=== PATIENT | female | born 1945 | race American Indian/Alaskan Native ===

== ENCOUNTER 2019-06-22 09:51 | Outpatient (CLI) | payer MEDICARE ==
--- NOTE | 2019-06-22 11:48 | Cat Scan Report ---
CT ABDOMEN AND PELVIS WITHOUT CONTRAST HISTORY: D41.02 NEOPLASM OF UNCERTAIN BEHAVIOR OF LEFT KIDNEY COMPARISON: None. TECHNIQUE: Axial CT images were obtained through the abdomen and pelvis without IV contrast. Sagittal and coronal reformatted images. All CT scans at this location are performed using CT dose reduction for ALARA by means of automated exposure control. FINDINGS: CT ABDOMEN: Lung Bases: Clear. Liver: No significant abnormality. Biliary: No significant abnormality. Spleen: No significant abnormality. Unenlarged. Pancreas: No significant abnormality. Adrenals: No significant abnormality. Kidneys: Both kidneys are normal size, contour and position. There is suggestion of a subtle cyst jose suring 2 cm in the mid right kidney. No left renal lesion is detected on noncontrast CT. The ureters are normal course and caliber. Lymphatics: No lymphadenopathy. Vasculature: No significant abnormality. Bowel/Peritoneum: No significant abnormality. No free air. No free fluid. Normal appendix. CT PELVIS: : The uterus is enlarged and appears to contain multiple small to medium fibroids some of which con tain focal calcifications. The endometrium is grossly normal. No adnexal abnormality is detected. The distal ureters and bladder are unremarkable. Osseous Structures: Mild scoliosis and degenerative changes in the thoracolumbar spine. No fracture o r suspicious bony lesion. Additional Findings: None IMPRESSION: No left renal lesion is identified on noncontrast CT. There is suggestion of a subtle 2 cm cyst in th e right kidney near mid pole. Moderate uterine fibroid disease. Thoracolumbar scoliosis with degenerative changes. Signer Name: Navarro Chowdhury Jr, MD Signed: 06/22/2019 11:44 AM Workstation Name: [id number]
== END 2019-06-22 09:52 | disposition home or self-care (01) ==
LOC: CT 09:51
PROVIDERS: ATTEND Urology
DX: D41.02 Neoplasm of uncertain behavior of left kidney (principal); D25.9 Leiomyoma of uterus, unspecified; N85.2 Hypertrophy of uterus; M41.55 Other secondary scoliosis, thoracolumbar region
CPT/HCPCS: 74176

== ENCOUNTER 2020-07-29 10:22 | Outpatient (CLI) | payer MEDICARE ==
[2020-07-29 11:35] LABS: Blood Urea Nitrogen 20 mg/dL (7-17)
--- NOTE | 2020-07-29 14:16 | Cat Scan Report ---
CT ABDOMEN AND PELVIS WITH CONTRAST INDICATION / CLINICAL INFORMATION: FATTY LIVER. TECHNIQUE: Axial CT images were obtained through the abdomen and pelvis after 100 cc IV contrast. Sagittal and c oronal reformatted images. All CT scans at this location are performed using CT dose reduction for AL HEATH by means of automated exposure control. COMPARISON: 06/22/2019 FINDINGS: LOWER CHEST: Trace right pleural effusion layers posteriorly. The visualized lung bases are well aera gloria otherwise. Heart size is at the upper limits of normal. LIVER: No significant abnormality. No significant fatty infiltration is appreciated. No focal lesion. GALLBLADDER: No significant abnormality. BILE DUCTS: No significant abnormality. PANCREAS: No significant abnormality. SPLEEN: No significant abnormality. ADRENALS: No significant abnormality. RIGHT KIDNEY and URETER: 2 simple cysts are identified in the mid right kidney measuring 1.8 cm and 2 .0 cm. Otherwise the right kidney and collecting system are unremarkable. LEFT KIDNEY and URETER: No significant abnormality. STOMACH and SMALL BOWEL: No significant abnormality. COLON: No significant abnormality. APPENDIX: Not confidently identified, correlate with surgical history. PERITONEUM: No free fluid. No free air. No fluid collection. LYMPH NODES: No significant adenopathy. AORTA and ARTERIES: No significant abnormality. IVC and VEINS: No significant abnormality. URINARY BLADDER: No significant abnormality. REPRODUCTIVE ORGANS: The uterus is enlarged, lobular and heterogeneous. Multiple fibroids are present measuring up to 4.4 cm. The endometrium and adnexa are unremarkable. ADDITIONAL FINDINGS: 11.4 x 8.0 cm well-circumscribed fat density mass lesion is partially imaged in the mid left back and is most consistent with a lipoma. SKELETAL SYSTEM: There is mild dextro curvature of the lumbar spine with moderate to severe multileve l degenerative change. No acute fracture or suspicious bony lesion is detected. IMPRESSION: Unremarkable CT appearance of the liver. Simple right renal cysts as described. Trace right pleural effusion. Borderline heart size. Moderate to severe uterine fibroid disease. 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 Scoliosis with moderate thoracolumbar spondylosis. Signer Name: Navarro Chowdhury Jr, MD Signed: 07/29/2020 2:12 PM Workstation Name: [id number]
== END 2020-07-29 10:23 | disposition home or self-care (01) ==
LOC: CT 10:22
PROVIDERS: ATTEND Internal Medicine
DX: K76.0 Fatty (change of) liver, not elsewhere classified (principal); N28.1 Cyst of kidney, acquired; D25.9 Leiomyoma of uterus, unspecified; N85.2 Hypertrophy of uterus; J90 Pleural effusion, not elsewhere classified; D17.79 Benign lipomatous neoplasm of other sites; M47.815 Spondylosis without myelopathy or radiculopathy, thoracolumbar region
CPT/HCPCS: 36415; 74177; 82565; 84520; Q9967; 74170

== ENCOUNTER 2020-10-10 09:25 | Outpatient (CLI) | payer MEDICARE ==
--- NOTE | 2020-10-10 11:00 | Mammography Report ---
DEXA BONE DENSITY SCAN INDICATION / CLINICAL INFORMATION: OSTEOPOROSIS. 75 years Female COMPARISON: None available. LUMBAR SPINE, L1-L4: - Bone mineral density (BMD) = 0.935 g/cm2. - T-score = -1.0 - Z-score = 0.6 Change (%) since most recent prior (if available): None available. LEFT HIP, TOTAL : - Bone mineral density (BMD) = 0.713 g/cm2. - T-score = -1.9 - Z-score = -0.8 Change (%) since most recent prior (if available): None available. IMPRESSION: 1. WHO Classification: Osteopenia. Fracture Risk: Increased. 2. 10-Year Fracture Risk (FRAX) = Major Osteoporotic 4.5% / Hip: 0.8% FRAX generally not reported for patients with normal or osteoporotic BMD, in ewc-cnlwezp-nwjrcpu km ents younger than age 50, or in patients undergoing pharmacotherapy BMD Reporting Guidelines (ISCD, 2015) BMD Reporting in Postmenopausal Women and in Men Age 50 and Older - T-scores are preferred. - The WHO densitometric classification is applicable. BMD Reporting in Females Prior to Menopause and in Males Younger Than Age 50 - Z-scores, not T-scores, are preferred. This is particularly important in children. - A Z-score of -2.0 or lower is defined as below the expected range for age, and a Z-score above -2.0 is within the expected range for age. - Osteoporosis cannot be diagnosed in men under age 50 on the basis of BMD alone. - The WHO diagnostic criteria may be applied to women in the menopausal transition. http://www.iscd.org/official-positions/7481-kdoo-aynmughj-positions-adult/ Signer Name: Silvano Engle MD Signed: 10/10/2020 10:55 AM Workstation Name: [id number]
== END 2020-10-10 09:26 | disposition home or self-care (01) ==
LOC: MAMMO 09:25
PROVIDERS: ATTEND Internal Medicine
DX: M85.89 Other specified disorders of bone density and structure, multiple sites (principal); Z13.820 Encounter for screening for osteoporosis; N95.1 Menopausal and female climacteric states
CPT/HCPCS: 77080

== ENCOUNTER 2020-12-25 12:36 | Outpatient (CLI) | payer MEDICARE ==
--- NOTE | 2020-12-25 14:08 | Cat Scan Report ---
CT ABDOMEN AND PELVIS WITHOUT CONTRAST INDICATION / CLINICAL INFORMATION: RIGHT UPPER QUADRANT PAIN. TECHNIQUE: Axial CT images were obtained through the abdomen and pelvis without IV contrast. All CT scans at this location are performed using CT dose reduction for ALARA by means of automated exposure control. COMPARISON: 07/29/2020 FINDINGS: LOWER CHEST: No significant abnormality. AORTA / ARTERIES: No significant abnormality. IVC / VEINS: No significant abnormality. LYMPH NODES: No significant adenopathy. COLON: Diverticulosis without acute inflammation. APPENDIX: Not visualized. STOMACH / SMALL BOWEL: Small hiatal hernia. PERITONEUM: No free fluid. No free air. No fluid collection. LIVER: No significant abnormality. GALLBLADDER: No significant abnormality. BILE DUCTS: No significant abnormality. PANCREAS: No significant abnormality. SPLEEN: No significant abnormality. ADRENALS: No significant abnormality. RIGHT KIDNEY / URETER: Renal cyst. No hydronephrosis. LEFT KIDNEY / URETER: No significant abnormality. URINARY BLADDER: No significant abnormality. REPRODUCTIVE ORGANS: Multiple degenerating fibroids. SKELETAL SYSTEM: Scattered degeneration ADDITIONAL FINDINGS: None. IMPRESSION: 1. No CT findings to explain symptomatology. 2. Other findings as above. Signer Name: Shaka Rain DO Signed: 12/25/2020 2:03 PM Workstation Name: [id number]
== END 2020-12-25 12:37 | disposition home or self-care (01) ==
LOC: CT 12:36
PROVIDERS: ATTEND Urology
DX: N28.1 Cyst of kidney, acquired (principal); K57.30 Diverticulosis of large intestine without perforation or abscess without bleeding; K44.9 Diaphragmatic hernia without obstruction or gangrene; D25.9 Leiomyoma of uterus, unspecified; M47.819 Spondylosis without myelopathy or radiculopathy, site unspecified
CPT/HCPCS: 74176

== ENCOUNTER 2021-06-26 09:52 | Emergency (ER) | payer MEDICARE ==
--- NOTE | 2021-06-26 11:28 | Emergency Department Report ---
ED General Adult HPI - General Chief complaint: Recheck/Abnormal Lab/Rx Stated complaint: HYPERKALEMIA Time Seen by Provider: 06/26/21 11:16 Source: family, EMS ( EMS documentation not available at time of chart dictation ), RN notes reviewed Mode of arrival: Stretcher Limitations: Physical Limitation - History of Present Illness Initial comments: The patient is a 76-year-old female who is referred to the emergency room for possible hyperkalemia. History obtained from nursing team, who in turn obtained history from family. Patient has been at her baseline, and recently completed a course of Bactrim antibiotics for possible UTI. Reportedly outpatient laboratory studies were drawn, for unclear reasons, and the patient was referred to the emergency room for high potassium. The patient herself is awake and nonverbal. She therefore does not describe qualitative nature of symptoms, exacerbating factors relieving factors or aggravating factors. As per verbal report from nursing team, family have not endorsed any additional concerns. Severity scale (0 -10): 3 - Related Data Home Medications Medication Instructions Recorded Confirmed Last Taken Amiodarone [Cordarone 200 MG TAB] 200 mg PO 06/26/21 06/25/21 08:00 Apixaban [Eliquis] 5 mg PO 06/26/21 06/25/21 08:00 Atorvastatin [Lipitor Tab] 80 mg PO QHS 06/26/21 06/26/21 06/25/21 21:00 Famotidine [Acid-Pep] 20 mg PO 06/26/21 06/25/21 08:00 Hydralazine HCl 50 mg PO 06/26/21 06/25/21 20:00 Magnesium Oxide 400 mg PO 06/26/21 06/25/21 08:00 amLODIPine [Norvasc] 10 mg PO DAILY 06/26/21 06/26/21 06/25/21 08:00 carvediloL [Coreg] 25 mg PO BID 06/26/21 06/26/21 06/25/21 20:00 hydroCHLOROthiazide 12.5 mg PO 06/26/21 06/25/21 08:00 [Hydrochlorothiazide] lisinopriL [Lisinopril] 10 mg PO 06/26/21 06/25/21 08:00 Allergies Allergy/AdvReac Type Severity Reaction Status Date / Time fish oil Allergy Mild Rash Verified 06/26/21 10:25 ED Review of Systems ROS: Stated complaint: HYPERKALEMIA Other details as noted in HPI ED Past Medical Hx - Past Medical History Previous Medical History?: Yes Hx CVA: Yes Hx Arthritis: Yes - Surgical History Past Surgical History?: Yes Additional Surgical History: hysterectomy - Social History Smoking Status: Never Smoker Substance Use Type: None - Medications Home Medications: Home Medications Medication Instructions Recorded Confirmed Last Taken Type Amiodarone [Cordarone 200 MG TAB] 200 mg PO 06/26/21 06/25/21 08:00 History Apixaban [Eliquis] 5 mg PO 06/26/21 06/25/21 08:00 History Atorvastatin [Lipitor Tab] 80 mg PO QHS 06/26/21 06/26/21 06/25/21 21:00 History Famotidine [Acid-Pep] 20 mg PO 06/26/21 06/25/21 08:00 History Hydralazine HCl 50 mg PO 06/26/21 06/25/21 20:00 History Magnesium Oxide 400 mg PO 06/26/21 06/25/21 08:00 History amLODIPine [Norvasc] 10 mg PO DAILY 06/26/21 06/26/21 06/25/21 08:00 History carvediloL [Coreg] 25 mg PO BID 06/26/21 06/26/21 06/25/21 20:00 History hydroCHLOROthiazide 12.5 mg PO 06/26/21 06/25/21 08:00 History [Hydrochlorothiazide] lisinopriL [Lisinopril] 10 mg PO 06/26/21 06/25/21 08:00 History ED Physical Exam - General Limitations: Physical Limitation General appearance: in no apparent distress - Head Head exam: Present: atraumatic, normocephalic - Eye Eye exam: Present: normal appearance, EOMI - ENT ENT exam: Present: normal exam, normal orophraynx, mucous membranes moist, no rmal external ear exam - Neck Neck exam: Present: normal inspection, full ROM. Absent: tenderness, meningismus - Respiratory Respiratory exam: Present: normal lung sounds bilaterally. Absent: respiratory distress, wheezes, rales, rhonchi, stridor - Cardiovascular Cardiovascular Exam: Present: regular rate, normal rhythm, normal heart sounds. Absent: bradycardia, tachycardia, irregular rhythm, systolic murmur, diastolic murmur, rubs, gallop - GI/Abdominal GI/Abdominal exam: Present: soft, other (There is a feeding tube in place, without redness, pus or streaking). Absent: distended, tenderness, guarding, rebound, rigid, pulsatile mass - Extremities Exam Extremities exam: Present: normal inspection (Left-sided hemiplegia), pedal edema (1+ edema in the bilateral lower extremity), other (2+ pulses noted in the bilateral upper and lower extremities. There is no palpable cord. negative Homans sign. Muscular compartments are soft. The pelvis is stable.). Absent: calf tenderness - Back Exam Back exam: Present: normal inspection. Absent: tenderness, CVA tenderness (R), paraspinal tenderness, vertebral tenderness - Neurological Exam Neurological exam: Present: other (The patient is awake. The patient is br eathing spontaneously. The patient is nonverbal. Hemiplegia from prior stroke detailed neurologic examination not possible to chronic debility.) - Psychiatric Psychiatric exam: Present: other (The patient is nonverbal) - Skin Skin exam: Present: warm, dry, intact, normal color. Absent: rash ED Course Vital Signs 06/26/21 06/26/21 06/26/21 09:54 10:14 10:16 Temperature 98 F Pulse Rate 77 82 Respiratory 18 17 Rate Blood Pressure 162/80 Blood Pressure 164/82 [Left] O2 Sat by Pulse 100 100 Oximetry O2 Sat by Pulse Oximetry [ Digit-Finger] 06/26/21 06/26/21 06/26/21 10:17 10:25 12:21 Temperature 97.8 F Pulse Rate 81 77 85 Respiratory 20 19 20 Rate Blood Pressure 162/79 Blood Pressure 162/79 159/81 [Left] O2 Sat by Pulse 99 98 100 Oximetry O2 Sat by Pulse Oximetry [ Digit-Finger] 06/26/21 06/26/21 13:15 14:17 Temperature Pulse Rate 84 Respiratory Rate Blood Pressure Blood Pressure [Left] O2 Sat by Pulse Oximetry O2 Sat by Pulse 99 Oximetry [ Digit-Finger] - Reevaluation(s) Reevaluation #1: 06/26/21 13:17 Differential diagnosis, including but not limited to: Hyperkalemia, dehydration, renal insufficiency, laboratory error, bacteriuria Assessment and plan: 76-year-old female, who is afebrile, with reassuring vital signs, who does not appear to be in any acute distress. Suspect laboratory error. Laboratory studies are ordered by myself at 11: 23 AM. Thus far, they have still not been obtained. Apparently, the phlebotomy team had difficulty obtaining laboratory studies, but did not communicate this to myself. I have escalated this issue in real-time to the director of laboratory studies, Kenney Coffman, who is now here in the emergency room, and escalating the issue in real-time. Please note that delaying laboratory studies has led to a delay in patient's disposition. 06/26/21 13:21 06/26/21 15:12 Laboratory studies are unremarkable. Specifically, the patient does not have hyperkalemia. Urinalysis suggest pyuria. Discussed this with the patient's family on the phone. Discussed all findings. They articulated understanding. All questions answered. Start Keflex for bacteriuria. Cultures are sent. Will need to follow-up with outpatient primary care doctor. Patient observed in this department for hours without clinical decompensation. Reevaluation #2: 06/26/21 15:16 Patient will be discharged with a handwritten prescription for Keflex, 500 mg per 10 mL liquid, every 6 hours via feeding tube, for 5 days - Pulse Oximetry Interpretation Digit-Finger Initial Pulse Oximetry Readin O2 Sat by Pulse Oximetry: 99 Actions Taken: none ED Medical Decision Making - Lab Data Result diagrams: 06/26/21 13:38 06/26/21 13:38 Vital Signs 06/26/21 06/26/21 06/26/21 09:54 10:14 10:16 Temperature 98 F Pulse Rate 77 82 Respiratory 18 17 Rate Blood Pressure 162/80 Blood Pressure 164/82 [Left] O2 Sat by Pulse 100 100 Oximetry O2 Sat by Pulse Oximetry [ Digit-Finger] 06/26/21 06/26/21 06/26/21 10:17 10:25 12:21 Temperature 97.8 F Pulse Rate 81 77 85 Respiratory 20 19 20 Rate Blood Pressure 162/79 Blood Pressure 162/79 159/81 [Left] O2 Sat by Pulse 99 98 100 Oximetry O2 Sat by Pulse Oximetry [ Digit-Finger] 06/26/21 06/26/21 13:15 13:21 Temperature Pulse Rate 84 Respiratory Rate Blood Pressure Blood Pressure [Left] O2 Sat by Pulse Oximetry O2 Sat by Pulse 99 Oximetry [ Digit-Finger] Lab Results 06/26/21 06/26/21 Range/Units 13:38 13:38 WBC 10.4 (4.5-11.0) K/mm3 RBC 5.35 H (3.65-5.03) M/mm3 Hgb 12.4 (10.1-14.3) gm/dl Hct 38.1 (30.3-42.9) % MCV 71 L (79-97) fl MCH 23 L (28-32) pg MCHC 33 (30-34) % RDW 20.6 H (13.2-15.2) % Plt Count 421 (140-440) K/mm3 Sodium 135 L (137-145) mmol/L Potassium 4.6 (3.6-5.0) mmol/L Chloride 99.2 (98-107) mmol/L Carbon Dioxide 24 (22-30) mmol/L Anion Gap 16 mmol/L BUN 23 H (7-17) mg/dL Glucose 143 H (65-100) mg/dL Calcium 10.4 H (8.4-10.2) mg/dL Magnesium 1.90 (1.7-2.3) mg/dL Total Bilirubin 0.20 (0.1-1.2) mg/dL AST 20 (5-40) units/L ALT 46 (7-56) units/L Alkaline Phosphatase 117 (35-129) units/L Total Creatine Kinase 58 (30-135) units/L Total Protein 6.5 (6.3-8.2) g/dL Albumin 3.7 L (3.9-5) g/dL Albumin/Globulin Ratio 1.3 % Vital Signs 06/26/21 06/26/21 06/26/21 09:54 10:14 10:16 Temperature 98 F Pulse Rate 77 82 Respiratory 18 17 Rate Blood Pressure 162/80 Blood Pressure 164/82 [Left] O2 Sat by Pulse 100 100 Oximetry O2 Sat by Pulse Oximetry [ Digit-Finger] 06/26/21 06/26/21 06/26/21 10:17 10:25 12:21 Temperature 97.8 F Pulse Rate 81 77 85 Respiratory 20 19 20 Rate Blood Pressure 162/79 Blood Pressure 162/79 159/81 [Left] O2 Sat by Pulse 99 98 100 Oximetry O2 Sat by Pulse Oximetry [ Digit-Finger] 06/26/21 06/26/21 13:15 14:17 Temperature Pulse Rate 84 Respiratory Rate Blood Pressure Blood Pressure [Left] O2 Sat by Pulse Oximetry O2 Sat by Pulse 99 Oximetry [ Digit-Finger] Lab Results 06/26/21 06/26/21 06/26/21 Range/Units 12:21 13:38 13:38 WBC 10.4 (4.5-11.0) K/mm3 RBC 5.35 H (3.65-5.03) M/mm3 Hgb 12.4 (10.1-14.3) gm/dl Hct 38.1 (30.3-42.9) % MCV 71 L (79-97) fl MCH 23 L (28-32) pg MCHC 33 (30-34) % RDW 20.6 H (13.2-15.2) % Plt Count 421 (140-440) K/mm3 Sodium 135 L (137-145) mmol/L Potassium 4.6 (3.6-5.0) mmol/L Chloride 99.2 (98-107) mmol/L Carbon Dioxide 24 (22-30) mmol/L Anion Gap 16 mmol/L BUN 23 H (7-17) mg/dL Creatinine 0.4 L (0.6-1.2) mg/dL Estimated GFR > 60 ml/min BUN/Creatinine Ratio 58 % Glucose 143 H (65-100) mg/dL Calcium 10.4 H (8.4-10.2) mg/dL Magnesium 1.90 (1.7-2.3) mg/dL Total Bilirubin 0.20 (0.1-1.2) mg/dL AST 20 (5-40) units/L ALT 46 (7-56) units/L Alkaline Phosphatase 117 (35-129) units/L Total Creatine Kinase 58 (30-135) units/L Total Protein 6.5 (6.3-8.2) g/dL Albumin 3.7 L (3.9-5) g/dL Albumin/Globulin Ratio 1.3 % Urine Color Red (Yellow) Urine Turbidity Cloudy (Clear) Urine pH 7.0 (5.0-7.0) Ur Specific [place] 1.016 (1.003-1.030) Urine Protein 100 mg/dl (Negative) mg/dL Urine Glucose (UA) Neg (Negative) mg/dL Urine Ketones Neg (Negative) mg/dL Urine Blood Lg (Negative) Urine Nitrite Neg (Negative) Urine Bilirubin Neg (Negative) Urine Urobilinogen < 2.0 (<2.0) mg/dL Ur Leukocyte Esterase Lg (Negative) Urine WBC (Auto) 125.0 H (0.0-6.0) /HPF Urine RBC (Auto) > 182.0 (0.0-6.0) /HPF Urine WBC Clumps 3+ /HPF Calcium Oxalate Crystal 2+ - EKG Data -: EKG Interpreted by Me EKG shows normal: sinus rhythm Rate: normal - EKG Data When compared to previous EKG there are: previous EKG unavailable 06/26/21 13:27 The EKG is interpreted at 11: 13 Sinus rhythm, rate 79 bpm. Normal axis, right bundle branch block, motion artifact, QTC 4 7 1 ms. Abnormal EKG. Not a STEMI. Motion artifact. No prior for comparison. Not a STEMI Critical care attestation.: If time is entered above; I have spent that time in minutes in the direct care of this critically ill patient, excluding procedure time. ED Disposition Clinical Impression: Routine physicl lab exam, Pyuria, Uses feeding tube Disposition: HOME / SELF CARE / HOMELESS Is pt being admited?: No Does the pt Need Aspirin: No Condition: Good Additional Instructions: Please continue current outpatient medications. Cultures are sent today, and results will be available in the next 3 to 5 days. Please have your primary care doctor contact the medical records department to obtain culture results. Patient to be discharged with Keflex prescription, 500 mg per 10 mL liquid, every 6 hours via feeding tube, for 5 days. Follow-up with your primary care doctor within the next 10 days. Please return to the emergency room right away with new pain, worsened pain, migration of pain, projectile vomiting, change in mental status, confusion, inability tolerate liquid feeds, new, worsened or different symptoms not present on the initial emergency room evaluation Referrals: TING GILLETTE MD [Primary Care Provider] - 3-5 Days
[2021-06-26 13:55] LABS: Hematocrit 38.1 % (30.3-42.9); Hemoglobin 12.4 gm/dl (10.1-14.3); Mean Corpuscular HGB Conc 33 % (30-34); Mean Corpuscular Volume 71 fl (79-97); Platelet Count 421 K/mm3 (140-440); Red Blood Count 5.35 M/mm3 (3.65-5.03)
[2021-06-26 13:57] LABS: Red Cell Distribution Width 20.6 % (13.2-15.2)
[2021-06-26 14:11] LABS: Alanine Aminotransferase 46 units/L (7-56); Albumin 3.7 g/dL (3.9-5); Blood Urea Nitrogen 23 mg/dL (7-17); Calcium 10.4 mg/dL (8.4-10.2); Hemolysis Index 0
[2021-06-26 14:20] LABS: BUN/Creatinine Ratio 58
[2021-06-26 14:22] LABS: Bilirubin,Urine NEG (Negative); Blood,Urine LG (Negative); Calcium Oxalate Crystals,Urine 2+; Color,Urine Red (Yellow); RBC,Urine > 182.0 /HPF (0.0-6.0); Urobilinogen,Urine < 2.0 mg/dL (<2.0)
[2021-06-26] MEDS ORDERED: cephALEXin ORAL LIQD 500 MG/10 ML ORAL LIQD FEEDTUBE ONE (15:12)
[2021-06-26 17:06] VITALS: BP 108/79
--- NOTE | 2021-06-27 10:11 | Electrocardiograph Report ---
[facility] Test Date: 2021-06-26 Test Time: 11:13:00 Pat Name: JOSE DAVID WEST Department: Room: Gender: F Bit Setter: NEHEMIAS : 1945 Requested By: TENNILLE ORTEGA Order Number: [id number] Reading MD: Angel Lamas Measurements Intervals Marshall Rate: 79 P: 89 KS: 149 QRS: 62 QRSD: 148 T: -22 QT: 412 QTc: 471 Interpretive Statements Sinus rhythm Probable left atrial enlargement Right bundle branch block No previous ECG available for comparison Electronically Signed On 06-27-2021 10:10:42 EDT by Angel Lamas
== END 2021-06-26 21:47 | disposition home or self-care (01) ==
LOC: ED 09:52
DX: R73.9 Hyperglycemia, unspecified (principal); R82.81 Pyuria; Z86.73 Personal history of transient ischemic attack (TIA), and cerebral infarction without residual deficits; M19.90 Unspecified osteoarthritis, unspecified site; Z79.899 Other long term (current) drug therapy; Z91.013 Allergy to seafood
CPT/HCPCS: 36415; 80053; 81001; 82550; 83735; 85027; 87086; 93005; 99284

== ENCOUNTER 2021-07-11 10:26 | Outpatient (CLI) | payer MEDICARE ==
[2021-07-11] MEDS ORDERED: LIDOCAINE (4%) 40 MG/ML TOPICAL SOLN 50 ML BOTTLE TP ONE (12:00)
== END 2021-07-11 10:27 | disposition home or self-care (01) ==
LOC: WOUND 10:26
PROVIDERS: ATTEND Surgery
DX: L89.154 Pressure ulcer of sacral region, stage 4 (principal); I10 Essential (primary) hypertension; N28.9 Disorder of kidney and ureter, unspecified; Z86.73 Personal history of transient ischemic attack (TIA), and cerebral infarction without residual deficits; Z79.899 Other long term (current) drug therapy

== ENCOUNTER 2021-07-18 13:08 | Outpatient (CLI) | payer MEDICARE | END 2021-07-18 13:09 | disposition home or self-care (01) | LOC: WOUND 13:08 | PROVIDERS: ATTEND Surgery | DX: L89.154 Pressure ulcer of sacral region, stage 4 (principal); I10 Essential (primary) hypertension; N28.9 Disorder of kidney and ureter, unspecified; Z86.73 Personal history of transient ischemic attack (TIA), and cerebral infarction without residual deficits; Z79.899 Other long term (current) drug therapy | CPT/HCPCS: 99212; G0463 ==

== ENCOUNTER 2021-08-04 12:51 | Emergency (ER) | payer MEDICARE ==
--- NOTE | 2021-08-04 14:35 | Emergency Department Report ---
ED General Adult HPI - General Chief complaint: Weakness Stated complaint: IV ASSISTANCE Time Seen by Provider: 08/04/21 13:10 Source: EMS Mode of arrival: Stretcher Limitations: Other - History of Present Illness Initial comments: Patient presents to the emergency department via EMS for IV access. The patient's son is at the bedside and states that his mother suffered 2 strokes within the last year or so and has had neurological deficits since that time. She is nonverbal and cannot walk. He states the home health care nurse was out today to give the patient IV and IV fluids since she had diarrhea for the last 2 days but they were not able to obtain access. Patient is nonverbal thus unable to add to history. -: unknown Consistency: constant Improves with: none Worsens with: none Associated Symptoms: denies other symptoms Treatments Prior to Arrival: none - Related Data Home Medications Medication Instructions Recorded Confirmed Last Taken Amiodarone [Cordarone 200 MG TAB] 200 mg PO DAILY 06/26/21 07/22/21 07/19/21 Apixaban [Eliquis] 5 mg PO BID 06/26/21 07/22/21 07/19/21 Atorvastatin [Lipitor] 80 mg PO QHS 06/26/21 07/22/21 07/19/21 Famotidine [Acid-Pep] 20 mg PO DAILY 06/26/21 07/22/21 07/19/21 Magnesium Oxide 400 mg PO BID 06/26/21 07/22/21 07/19/21 amLODIPine 10 mg PO DAILY 06/26/21 07/22/21 07/19/21 carvediloL [Coreg] 25 mg PO BID 06/26/21 07/22/21 07/19/21 lisinopriL [Lisinopril] 10 mg PO DAILY 06/26/21 07/22/21 07/19/21 Albuterol Mdi (or & Nicu Only) 2 puff IH Q4H PRN 07/22/21 07/22/21 07/19/21 [ProAir HFA Inhaler] hydroCHLOROthiazide [HCTZ] 12.5 mg PO QDAY 07/22/21 07/22/21 07/19/21 Previous Rx's Medication Instructions Recorded Last Taken Type Cefdinir 300 mg PO BID 10 Days #20 cap 07/28/21 Unknown Rx Sodium Hypochlorite [Dakin's Half 1 applic TP BID 30 Days #2 bottle 07/28/21 Unknown Rx Strength] Allergies Allergy/AdvReac Type Severity Reaction Status Date / Time fish oil Allergy Mild Rash Verified 06/26/21 10:25 ED Review of Systems ROS: Stated complaint: IV ASSISTANCE Other details as noted in HPI Comment: Unobtainable due to pts medical conditions (due to the patient's baseline mental status) ED Past Medical Hx - Past Medical History Previous Medical History?: Yes Hx CVA: Yes Hx Renal Disease: No Hx Arthritis: Yes - Surgical History Past Surgical History?: Yes Additional Surgical History: hysterectomy - Social History Smoking Status: Unknown if ever smoked - Medications Home Medications: Home Medications Medication Instructions Recorded Confirmed Last Taken Type Amiodarone [Cordarone 200 MG TAB] 200 mg PO DAILY 06/26/21 07/22/21 07/19/21 H istory Apixaban [Eliquis] 5 mg PO BID 06/26/21 07/22/21 07/19/21 History Atorvastatin [Lipitor] 80 mg PO QHS 06/26/21 07/22/21 07/19/21 History Famotidine [Acid-Pep] 20 mg PO DAILY 06/26/21 07/22/21 07/19/21 History Magnesium Oxide 400 mg PO BID 06/26/21 07/22/21 07/19/21 History amLODIPine 10 mg PO DAILY 06/26/21 07/22/21 07/19/21 History carvediloL [Coreg] 25 mg PO BID 06/26/21 07/22/21 07/19/21 History lisinopriL [Lisinopril] 10 mg PO DAILY 06/26/21 07/22/21 07/19/21 History Albuterol Mdi (or & Nicu Only) 2 puff IH Q4H PRN 07/22/21 07/22/21 07/19/21 History [ProAir HFA Inhaler] hydroCHLOROthiazide [HCTZ] 12.5 mg PO QDAY 07/22/21 07/22/21 07/19/21 History Cefdinir 300 mg PO BID 10 Days #20 cap 07/28/21 Unknown Rx Sodium Hypochlorite [Dakin's Half 1 applic TP BID 30 Days #2 bottle 07/28/21 Unknown Rx Strength] ED Physical Exam - General Limitations: Other General appearance: in no apparent distress, obese - Head Head exam: Present: atraumatic, normocephalic - Eye Eye exam: Present: PERRL. Absent: scleral icterus - ENT ENT exam: Present: mucous membranes dry - Neck Neck exam: Present: normal inspection - Respiratory Respiratory exam: Present: normal lung sounds bilaterally. Absent: respiratory distress - Cardiovascular Cardiovascular Exam: Present: regular rate, normal rhythm, bradycardia - GI/Abdominal GI/Abdominal exam: Present: soft, normal bowel sounds. Absent: distended, tenderness - Extremities Exam Extremities exam: Present: other (Patient not able to move lower extremities secondary to previous CVA) - Neurological Exam Neurological exam: Present: other (Not able to assess due to the patient's baseline medical condition) - Psychiatric Psychiatric exam: Present: other (Not able to assess due to the patient's baseline mental status) - Skin Skin exam: Present: warm. Absent: dry, intact, normal color, rash ED Course Vital Signs 08/04/21 08/04/21 08/04/21 12:57 13:14 16:18 Temperature 98.9 F Pulse Rate 58 L 76 Respiratory 18 16 16 Rate Blood Pressure 126/50 Blood Pressure 118/55 [Left] O2 Sat by Pulse 100 97 100 Oximetry ED Medical Decision Making - Lab Data Result diagrams: 08/04/21 14:47 08/04/21 14:47 Lab Results 08/04/21 08/04/21 Range/Units 14:47 14:47 WBC 10.9 (4.5-11.0) K/mm3 RBC 3.78 (3.65-5.03) M/mm3 Hgb 8.6 L (10.1-14.3) gm/dl Hct 26.1 L (30.3-42.9) % MCV 69 L (79-97) fl MCH 23 L (28-32) pg MCHC 33 (30-34) % RDW 20.8 H (13.2-15.2) % Plt Count 695 H (140-440) K/mm3 Lymph % (Auto) 24.0 (13.4-35.0) % [place] % (Auto) 8.6 H (0.0-7.3) % Eos % (Auto) 4.2 (0.0-4.3) % Baso % (Auto) 0.7 (0.0-1.8) % Lymph # (Auto) 2.6 (1.2-5.4) K/mm3 [place] # (Auto) 0.9 H (0.0-0.8) K/mm3 Eos # (Auto) 0.5 H (0.0-0.4) K/mm3 Baso # (Auto) 0.1 (0.0-0.1) K/mm3 Seg Neutrophils % 62.5 (40.0-70.0) % Seg Neutrophils # 6.8 (1.8-7.7) K/mm3 Sodium 137 (137-145) mmol/L Potassium 4.5 (3.6-5.0) mmol/L Chloride 99.2 (98-107) mmol/L Carbon Dioxide 29 (22-30) mmol/L Anion Gap 13 mmol/L BUN 12 (7-17) mg/dL Creatinine 0.2 L (0.6-1.2) mg/dL Estimated GFR > 60 ml/min BUN/Creatinine Ratio 60 % Glucose 118 H (65-100) mg/dL Calcium 9.5 (8.4-10.2) mg/dL Total Bilirubin 0.50 (0.1-1.2) mg/dL AST 13 (5-40) units/L ALT 15 (7-56) units/L Alkaline Phosphatase 76 (35-129) units/L Total Protein 6.1 L (6.3-8.2) g/dL Albumin 2.8 L (3.9-5) g/dL Albumin/Globulin Ratio 0.8 % - Medical Decision Making IV obtained IVF given Critical care attestation.: If time is entered above; I have spent that time in minutes in the direct care of this critically ill patient, excluding procedure time. ED Disposition Clinical Impression: Diarrhea, Dehydration Disposition: 01 HOME / SELF CARE / HOMELESS Is pt being admited?: No Does the pt Need Aspirin: No Condition: Stable Instructions: Diarrhea, Adult Additional Instructions: return if worse Referrals: TING GILLETTE MD [Primary Care Provider] - 3-5 Days Time of Disposition: 17:10
[2021-08-04 14:57] LABS: Basophils # (Auto) 0.1 K/mm3 (0.0-0.1); Basophils % (Auto) 0.7 % (0.0-1.8); Eosinophils # (Auto) 0.5 K/mm3 (0.0-0.4); Eosinophils % (Auto) 4.2 % (0.0-4.3); Hematocrit 26.1 % (30.3-42.9); Hemoglobin 8.6 gm/dl (10.1-14.3); Lymphocytes # (Auto) 2.6 K/mm3 (1.2-5.4); Mean Corpuscular HGB Conc 33 % (30-34); Monocytes # (Auto) 0.9 K/mm3 (0.0-0.8); Monocytes % (Auto) 8.6 % (0.0-7.3); Platelet Count 695 K/mm3 (140-440); Red Blood Count 3.78 M/mm3 (3.65-5.03)
[2021-08-04 15:04] LABS: Mean Corpuscular Volume 69 fl (79-97); Red Cell Distribution Width 20.8 % (13.2-15.2)
[2021-08-04 15:11] LABS: Alanine Aminotransferase 15 units/L (7-56); Albumin 2.8 g/dL (3.9-5)
[2021-08-04] MEDS ORDERED: SODIUM CHLORIDE 0.9% 1000 ML 500 ML IV ONE (15:22)
[2021-08-04 15:38] LABS: Blood Urea Nitrogen 12 mg/dL (7-17); Calcium 9.5 mg/dL (8.4-10.2); Hemolysis Index 8
[2021-08-04 15:40] LABS: BUN/Creatinine Ratio 60
[2021-08-04 20:00] VITALS: BP 110/48
== END 2021-08-04 19:59 | disposition home or self-care (01) ==
LOC: ED 12:51
DX: R19.7 Diarrhea, unspecified (principal); E78.00 Pure hypercholesterolemia, unspecified; E86.0 Dehydration; M19.90 Unspecified osteoarthritis, unspecified site; Z86.73 Personal history of transient ischemic attack (TIA), and cerebral infarction without residual deficits; Z90.710 Acquired absence of both cervix and uterus; Z91.013 Allergy to seafood
CPT/HCPCS: 36415; 80053; 85025; 99284; J7030

== ENCOUNTER 2021-08-15 11:19 | Outpatient (CLI) | payer MEDICARE ==
[2021-08-15] MEDS ORDERED: LIDOCAINE (4%) 40 MG/ML TOPICAL SOLN 50 ML BOTTLE TP ONE (12:57)
[2021-08-15] MEDS ORDERED: SODIUM HYPOCHLORITE, DAKIN'S FULL STRENGTH (0.5%) 473 ML TOPICAL SOLN TP ONE (13:49)
== END 2021-08-15 11:20 | disposition home or self-care (01) ==
LOC: WOUND 11:19
PROVIDERS: ATTEND Surgery
DX: L89.154 Pressure ulcer of sacral region, stage 4 (principal); I10 Essential (primary) hypertension; N28.9 Disorder of kidney and ureter, unspecified; Z86.73 Personal history of transient ischemic attack (TIA), and cerebral infarction without residual deficits; Z79.899 Other long term (current) drug therapy
CPT/HCPCS: 97597; 97598

== ENCOUNTER 2021-08-22 11:30 | Outpatient (CLI) | payer MEDICARE ==
[2021-08-22] MEDS ORDERED: LIDOCAINE (4%) 40 MG/ML TOPICAL SOLN 50 ML BOTTLE TP ONE (13:00)
[2021-08-22] MEDS ORDERED: SODIUM HYPOCHLORITE, DAKIN'S FULL STRENGTH (0.5%) 473 ML TOPICAL SOLN TP ONE (14:00)
== END 2021-08-22 11:31 | disposition home or self-care (01) ==
LOC: WOUND 11:30
PROVIDERS: ATTEND Surgery
DX: L89.154 Pressure ulcer of sacral region, stage 4 (principal); I10 Essential (primary) hypertension; N28.9 Disorder of kidney and ureter, unspecified; Z86.73 Personal history of transient ischemic attack (TIA), and cerebral infarction without residual deficits; Z79.899 Other long term (current) drug therapy

== ENCOUNTER 2021-09-05 10:40 | Outpatient (CLI) | payer MEDICARE ==
[2021-09-05] MEDS ORDERED: LIDOCAINE (4%) 40 MG/ML TOPICAL SOLN 50 ML BOTTLE TP ONE (12:01)
[2021-09-05] MEDS ORDERED: SODIUM CHLORIDE 0.9% IRR 1,000 ML BOTTLE IR ONE (12:02)
[2021-09-05] MEDS ORDERED: SODIUM CHLORIDE IRRIG SOLUTION 1,000 ML BAG IR ONE (12:15)
[2021-09-05] MEDS ORDERED: SODIUM HYPOCHLORITE, DAKIN'S FULL STRENGTH (0.5%) 473 ML TOPICAL SOLN TP ONE (14:00)
== END 2021-09-05 10:41 | disposition home or self-care (01) ==
LOC: WOUND 10:40
PROVIDERS: ATTEND Surgery
DX: L89.154 Pressure ulcer of sacral region, stage 4 (principal); I10 Essential (primary) hypertension; N28.9 Disorder of kidney and ureter, unspecified; Z86.73 Personal history of transient ischemic attack (TIA), and cerebral infarction without residual deficits; Z79.899 Other long term (current) drug therapy

== ENCOUNTER 2021-09-19 10:41 | Outpatient (CLI) | payer MEDICARE ==
[2021-09-19] MEDS ORDERED: LIDOCAINE (4%) 40 MG/ML TOPICAL SOLN 50 ML BOTTLE TP ONE (10:45)
[2021-09-19] MEDS ORDERED: SODIUM CHLORIDE IRRIG SOLUTION 1,000 ML BAG IR ONE (10:46)
[2021-09-19] MEDS ORDERED: SODIUM HYPOCHLORITE, DAKIN'S FULL STRENGTH (0.5%) 473 ML TOPICAL SOLN TP SCH (13:30)
== END 2021-09-19 10:42 | disposition home or self-care (01) ==
LOC: WOUND 10:41
PROVIDERS: ATTEND Surgery
DX: L89.154 Pressure ulcer of sacral region, stage 4 (principal); I10 Essential (primary) hypertension; N28.9 Disorder of kidney and ureter, unspecified; Z86.73 Personal history of transient ischemic attack (TIA), and cerebral infarction without residual deficits; Z79.899 Other long term (current) drug therapy

== ENCOUNTER 2021-10-03 11:04 | Outpatient (CLI) | payer MEDICARE ==
[2021-10-03] MEDS ORDERED: SODIUM CHLORIDE 0.9% IRR 500 ML BOTTLE IR SCH (12:30)
[2021-10-03] MEDS ORDERED: SODIUM HYPOCHLORITE, DAKIN'S 1/2 STRENGTH (0.25%) 473 ML TOPICAL SOLN TP ONE (13:21)
[2021-10-03] MEDS ORDERED: LIDOCAINE (4%) 40 MG/ML TOPICAL SOLN 50 ML BOTTLE TP ONE (13:29)
== END 2021-10-03 11:05 | disposition home or self-care (01) ==
LOC: WOUND 11:04
PROVIDERS: ATTEND Surgery
DX: L89.154 Pressure ulcer of sacral region, stage 4 (principal); I10 Essential (primary) hypertension; N28.9 Disorder of kidney and ureter, unspecified; Z86.73 Personal history of transient ischemic attack (TIA), and cerebral infarction without residual deficits; Z79.899 Other long term (current) drug therapy
CPT/HCPCS: 87076; 87116; 87186; G0463; 99212

== ENCOUNTER 2021-10-17 10:54 | Outpatient (CLI) | payer MEDICARE ==
[2021-10-17] MEDS ORDERED: SODIUM HYPOCHLORITE, DAKIN'S FULL STRENGTH (0.5%) 473 ML TOPICAL SOLN TP ONE (11:59)
[2021-10-17] MEDS ORDERED: LIDOCAINE (4%) 40 MG/ML TOPICAL SOLN 50 ML BOTTLE TP ONE (12:00)
== END 2021-10-17 10:55 | disposition home or self-care (01) ==
LOC: WOUND 10:54
PROVIDERS: ATTEND Surgery
DX: L89.154 Pressure ulcer of sacral region, stage 4 (principal); I10 Essential (primary) hypertension; N28.9 Disorder of kidney and ureter, unspecified; Z86.73 Personal history of transient ischemic attack (TIA), and cerebral infarction without residual deficits; Z79.899 Other long term (current) drug therapy
CPT/HCPCS: 99214; G0463